=== PATIENT | female | born 1940 | race Caucasian/White ===

== ENCOUNTER 2021-04-10 16:54 | Emergency (ER) | payer BC ==
[~2021-04-10] VITALS: Ht 165.1 cm; Wt 57.5 kg
--- NOTE | 2021-04-10 17:22 | NUR ---
PT HAS ABRASION TO LEFT KNEE IRRIGATED WITH 10 CC NORMAL SALINE AND BANDAID PLACED FOR COVER
[2021-04-10] MEDS ORDERED: acetaminophen 325mg tablet PO ONE (19:40)
[2021-04-10] MEDS ORDERED: ONDA4TAB6 PO (19:50)
[2021-04-10] MEDS ORDERED: HYDR-3964 PO (19:50)
[2021-04-10 20:50] VITALS: BP 154/78
== END 2021-04-10 20:52 | disposition home or self-care (01) ==
LOC: ER 16:55
DX: S42.292A Other displaced fracture of upper end of left humerus, initial encounter for closed fracture (principal); W18.39XA Other fall on same level, initial encounter; Y93.89 Activity, other specified; Y92.89 Other specified places as the place of occurrence of the external cause; Y99.8 Other external cause status
CPT/HCPCS: 29105; 73030; 99284